=== PATIENT | male | born 1980 | race Caucasian/White ===

== ENCOUNTER 2018-05-25 00:52 | Inpatient (IN) ==
--- NOTE | 2018-05-25 01:17 | Emergency Department Note ---
Disposition Clinical Impression: Cellulitis Qualifiers: Site of cellulitis: extremity Site of cellulitis of extremity: upper extremity Laterality: left Qualified Code(s): L03.114 - Cellulitis of left upper limb Disposition: Admitted As Inpatient Condition: Good Referrals: Jaky Irby CNP [Primary Care Provider] - Forms: ED Satisfaction Letter Skin/Abscess/FB HPI Chief complaint: ED Skin/Abscess/Foreign Body Stated complaint: Left hand abscess, on Bactrim x 2 days Time Seen by Provider: 05/25/18 01:12 Source: patient, EMS Mode of arrival: EMS Limitations: no limitations Nursing Notes Reviewed: Yes Vital Signs Reviewed: Yes HPI Narrative: Patient presents via EMS with complaint of a hand abscess. States it started with a pimple on his third finger that he tried to pop 3 days ago. This made it worse with increased pain, swelling and redness. He was seen at [facility] 2 days ago and was started on Bactrim. He was told the pain and swelling should improve with the antibiotics. He has been taking the bactrim and gela been using cold compresses at home but states the swelling and pain is worsening. He outlined the swelling on his hand this morning and it has now spread past the outline to his wrist and into the additional fingers. He complains of a burning pain that is 9 out of 10 throughout the hand. He denies any fever or chills. 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 States he has been clean for 11 days. Denies any prior history of abscesses, boils or MRSA. He is in rehabilitation at [facility]. He has been taking 400 mg of ibuprofen approximately every 6 hours for pain. His last dose was around 8 PM. He is right handed. Home Medications Medication Instructions Recorded Confirmed No Known Home Drugs 05/12/18 05/25/18 Allergies Allergy/AdvReac Type Severity Reaction Status Date / Time Penicillins [PCN] Allergy Hives Verified 05/25/18 03:54 Constitutional: Denies: fever, chills, weakness, weight change Eyes: Denies: eye pain, eye discharge, vision change ENT ED: Denies: ear pain, throat pain, dental pain, hearing loss, epistaxis, congestion, dysphagia Cardiovascular: Denies: chest pain, palpitations, dyspnea on exertion, edema, syncope Respiratory: Denies: cough, dyspnea, wheezes, hemoptysis, stridor Gastrointestinal: Denies: abdominal pain, nausea, vomiting, diarrhea, constipation, hematemesis, melena, hematochezia Genitourinary: Denies: urgency, dysuria, frequency, hematuria Musculoskeletal: Denies: back pain, neck pain, arthralgia, myalgia Integumentary: Reports: as per HPI. Denies: rash, abrasion, lesions Neurological: Denies: headache, weakness, numbness, paresthesias, confusion, abnormal gait, vertigo Psychiatric: Denies: anxiety, depression, suicidal thoughts, homicidal thoughts, auditory hallucinations, visual hallucinations Endocrine: Denies: fatigue Past Medical History - Past Medical History Medical history: Reports: hepatitis, other Psychiatric history: Reports: depression - Social History Smoking Status: Current every day smoker Smokeless Tobacco Status: No Alcohol use: Reports: none Drug use: Reports: methamphetamine Physical Exam - General Limitations: no limitations General appearance: alert, in no apparent distress - Head Head exam: atraumatic, normocephalic, normal inspection - Eye Eye exam: Present: normal appearance, PERRL, EOMI - Chest Chest inspection: Present: normal inspection, symmetric chest wall rise - Respiratory Respiratory exam: Present: normal lung sounds bilaterally - Cardiovascular Cardiovascular exam: Present: regular rate, normal rhythm, normal heart sounds - Extremities Exam Extremities exam: Present: normal inspection, full ROM. Absent: tenderness, pedal edema - Expanded Upper Extremity Exam Forearm/Wrist exam: Present: normal inspection, full ROM Hand exam: Present: tenderness, swelling, erythema (and warmth extending to wrist on dorsum ). Absent: full ROM (limited by pain and swelling) Neuromotor exam: Normal: wrist extension, thumb opposition, thumb IP flexion, thumb adduction, fingers 2-5 abduction Course Course Narrative: Patient presents to the ED with worsening left hand pain, swelling, redness and warmth despite being on antibiotics for 2 days for an initial abscess on his hand. He has an obvious cellulitis but no focal abscess amenable to drainage at this time. Given that he has failed oral antibiotics as an outpatient he will require IV antibiotics. Will check lab work and give medication for pain. Discussed with patient the need for admission for IV antibiotics and he is in agreement. - Reevaluation(s) Reevaluation #1: CBC shows an elevated white blood cell count of 16.3 with elevated monocytes at 1.7. There has been a delay in the processing of the remainder of the lab work which is still pending at this time. Time: 03:33 Reevaluation #2: BMP is unremarkable. Lactate is normal. I spoke to the hospitalist instructional support technician, Dr. Ho, who has agreed to accept the patient. Time: 04:15 Vital Signs Temperature 97.5 F L 05/25/18 00:54 Pulse Rate 73 05/25/18 00:54 Respiratory Rate 16 05/25/18 00:54 Blood Pressure 158/77 05/25/18 00:54 O2 Sat by Pulse Oximetry 97 05/25/18 00:54 Temperature 97.5 F L 05/25/18 00:54 Pulse Rate 70 05/25/18 01:55 Respiratory Rate 16 05/25/18 01:55 Blood Pressure 146/71 05/25/18 01:55 O2 Sat by Pulse Oximetry 98 05/25/18 01:55 Oxygen Delivery Oxygen Delivery Room Air Skin/Abscess/Foreign Body - Differential Diagnosis Likely: abscess of skin or subcutaneous tissue, cellulitis - Medical Records Medical records reviewed: Yes I reviewed the patient's medical records. - Lab Data Lab results reviewed: Yes I reviewed the patient's lab results. Result diagrams: 05/25/18 02:05 Lab Results 05/25/18 Range/Units 02:05 WBC 14.3 H (4.3-11.1) K/mcL RBC 4.49 (4.19-5.50) M/mcL Hgb 14.0 (12.9-16.9) g/dL Hct 41.1 (37.5-50.1) % MCV 91.5 (83.0-100.0) fL MCH 31.2 (28.0-33.3) pg MCHC 34.1 (31.6-35.5) g/dL RDW 15.3 H (11.5-14.5) % Plt Count 378 (140-400) K/mcL MPV 10.4 (9.4-12.4) fL Immature Gran % 1.8 (0-4) % Seg Neutrophils % 59.8 % Lymphocytes % 24.6 % Monocytes % 11.6 % Eosinophils % 1.1 % Basophils % 1.1 % Neutrophils # 8.6 (1.6-8.9) K/mcL Lymphocytes # 3.5 (0.6-4.6) K/mcL Monocytes # 1.7 H (0.0-1.3) K/mcL Eosinophils # 0.2 (0.0-0.6) K/mcL Basophils # 0.2 (0.0-0.2) K/mcL
[2018-05-25] MEDS ORDERED: Clindamycin 600 MG/50 ML 600 MG/50 ML IV.SOLN IVPB ONE (01:36)
[2018-05-25] MEDS ORDERED: Ketorolac 30 MG/ML VIAL IVP ONE (01:37)
[2018-05-25 02:14] LABS: Basophils # 0.2 K/mcL (0.0-0.2); Basophils % 1.1 %; Eosinophils # 0.2 K/mcL (0.0-0.6); Eosinophils % 1.1 %; Hematocrit 41.1 % (37.5-50.1); Immature Granulocytes % 1.8 % (0-4); Lymphocytes # 3.5 K/mcL (0.6-4.6); Lymphocytes % 24.6 %; Mean Corpuscular HGB Conc 34.1 g/dL (31.6-35.5); Mean Corpuscular Hemoglobin 31.2 pg (28.0-33.3); Mean Corpuscular Volume 91.5 fL (83.0-100.0); Mean Platelet Volume 10.4 fL (9.4-12.4); Monocytes # 1.7 K/mcL (0.0-1.3); Monocytes % 11.6 %; Platelet Count 378 K/mcL (140-400); Red Blood Count 4.49 M/mcL (4.19-5.50); Red Cell Distribution Width 15.3 % (11.5-14.5); Segmented Neutrophils % 59.8 %
[2018-05-25 02:18] LABS: Neutrophils # 8.6 K/mcL (1.6-8.9)
[2018-05-25 03:35] LABS: BUN/Creatinine Ratio 24 (6-26); Blood Urea Nitrogen 17 mg/dL (6-20); Calcium 9.6 mg/dL (8.6-10.3); Carbon Dioxide 25 mEq/L (23-29); Chloride 105 mEq/L (98-107); Glucose 118 mg/dL (70-105); Osmolality,Calculated 291 (280-300); Potassium 4.1 mEq/L (3.5-5.1); Sodium 139 mEq/L (136-145); eGFR For Non-African Americans > 60 (> 60)
--- NOTE | 2018-05-25 12:24 | Internal Med History&Physical ---
Date of Encounter: 05/25/18 Time of Encounter: 12:00 Assessment and Plan (1) Cellulitis Current visit: Yes Status: Acute He was started on IV clindamycin in emergency room. This will be continued with lactobacillus. Qualifiers: Site of cellulitis: extremity Site of cellulitis of extremity: upper extremity Laterality: left Qualified Code(s): L03.114 - Cellulitis of left upper limb (2) Hepatitis C Current visit: Yes Status: Chronic LFTs will be checked in a.m. Qualifiers: Viral hepatitis chronicity: chronic Hepatic coma status: without hepatic coma Qualified Code(s): B18.2 - Chronic viral hepatitis C Internal Medicine - H&P: HPI Chief complaint: Left hand infection Admitted From: Emergency Dept Plans for Post Hospital Care: Home History of present illness: Mr. Ortiz is a 37 year old male who came to emergency room stating he had developed a left hand infection approximately 3 days ago. He saw his PCP who prescribed Bactrim DS twice a day for the cellulitis. He did not feel he was improving so came to emergency room. He was found to have leukocytosis and significant erythema and pain in the left wrist and left dorsum of the hand. He was admitted to Medr floor for ongoing care needs. Past Med Surg Social Fam HX - Past Medical History Medical history: hepatitis, other Additional medical history: Hep C Psychiatric history: depression - Past Surgical History Additional surgical history: carpal tunnel surgery - Social History Smoking Status: Current every day smoker Packs per day: 1 Smokeless Tobacco Status: No Alcohol use: none Drug use: methamphetamine Internal Medicine - H&P: Meds No Known Home Drugs 05/12/18 [History] Allergy/AdvReac Type Severity Reaction Status Date / Time Penicillins [PCN] Allergy Hives Verified 05/25/18 03:54 All Systems PM: A 10-system review of systems was performed and is negative for pertinent findings except as documented above in the HPI. Review of systems: Gen.: He states his weight has been stable the past few months Cardiovascular: He denies hypertension VA heart failure angina DVT or pulmonary embolus Respiratory: He smoked since age 13 up to one pack per day. He denies chronic lung disease and does not use home oxygen GI: He was diagnosed with hepatitis C approximately 2016. He denies receiving treatment for hepatitis C. He was hospitalized at [facility] a few weeks ago with acute liver failure secondary to methamphetamine IV use. Denies other disorders of liver gallbladder or exocrine pancreas. : He denies hematuria dysuria or kidney stones Neurologic: He denies large distribution strokes or seizures. Endocrine: He denies diabetes thyroid disease or hyperlipidemia Hematology/oncology: He denies blood disorders cancers or anemia Psychiatric: He denies anxiety depression or other mental health issues [place] skeletal: He reports bilateral wrist fractures at age 10. He had bilateral carpal tunnel surgery done approximately 2013. He claims he has DJD but denies other bone joint or muscle disorders. - Constitutional Vitals: Temp Pulse Resp BP Pulse Ox 96.7 F L 68 18 120/74 96 05/25/18 10:25 05/25/18 10:25 05/25/18 10:25 05/25/18 10:25 05/25/18 10:25 Exam: Gen.: He is a well-developed well-nourished male lying in bed who appears in mild discomfort and complains of left wrist/hand pain HEENT: Head is atraumatic and normocephalic. Eyes: EOMI. There is no scleral icterus. Mouth: Mucosa is moist. Neck: Supple and nontender. There is no thyromegaly or adenopathy noted. Heart: Regular without murmurs gallops or ectopics Lungs: No wheezes or crackles are heard. Abdomen: Soft and nontender. No masses or guarding are noted. Extremities: He has no pitting edema of his legs. He has no significant DJD changes of his hands. The dorsum of the left hand shows erythema and increased warmth compared to the right. There is significant erythema surrounding a papular area on the dorsum of the third finger proximal phalanx. No lymphangitic streaking is noted. Neurologic: Mental status: He is talkative and a good historian. Cranial nerves: Smile is symmetric. Forehead wrinkles bilaterally. Tongue protrudes midline. EOMI. Motor: There is no pronator drift. Cerebellar: Finger to nose is intact bilaterally. Skin: Warm and dry Internal Med - H&P Results - Labs CBC & Chem 7: 05/25/18 02:05 05/25/18 02:05 Labs: Short CBC 05/25/18 Range/Units 02:05 WBC 14.3 H (4.3-11.1) K/mcL Hgb 14.0 (12.9-16.9) g/dL Hct 41.1 (37.5-50.1) % Plt Count 378 (140-400) K/mcL Neutrophils # 8.6 (1.6-8.9) K/mcL BMP 05/25/18 02:05 Sodium 139 Potassium 4.1 Chloride 105 Carbon Dioxide 25 BUN 17 Creatinine 0.71 Glucose 118 H Calcium 9.6
[2018-05-25] MEDS: Ibuprofen 600 MG TABLET PO PRN ×2 (14:44→21:04)
[2018-05-25] MEDS: Clindamycin 600 MG/50 ML 600 MG/50 ML IV.SOLN IVPB SCH ×2 (14:44→21:03)
[2018-05-25] MEDS ORDERED: Lactobacillus 1 EACH CAP.SPRINK PO SCH (21:00)
[2018-05-26 05:28] LABS: Basophils # 0.1 K/mcL (0.0-0.2); Basophils % 1.2 %; Eosinophils # 0.2 K/mcL (0.0-0.6); Eosinophils % 2.4 %; Hematocrit 41.7 % (37.5-50.1); Hemoglobin 14.1 g/dL (12.9-16.9); Immature Granulocytes % 2.2 % (0-4); Lymphocytes # 3.2 K/mcL (0.6-4.6); Lymphocytes % 32.1 %; Mean Corpuscular HGB Conc 33.8 g/dL (31.6-35.5); Mean Corpuscular Hemoglobin 31.2 pg (28.0-33.3); Mean Corpuscular Volume 92.3 fL (83.0-100.0); Mean Platelet Volume 10.7 fL (9.4-12.4); Monocytes # 1.1 K/mcL (0.0-1.3); Monocytes % 11.4 %; Neutrophils # 5.1 K/mcL (1.6-8.9); Platelet Count 337 K/mcL (140-400); Red Blood Count 4.52 M/mcL (4.19-5.50); Red Cell Distribution Width 15.4 % (11.5-14.5); Segmented Neutrophils % 50.7 %
[2018-05-26] MEDS: Clindamycin 600 MG/50 ML 600 MG/50 ML IV.SOLN IVPB SCH (05:40)
[2018-05-26] MEDS: Ibuprofen 600 MG TABLET PO PRN (05:44)
[2018-05-26 06:05] LABS: Alanine Aminotransferase 76 Units/L (7-52); Albumin 3.6 g/dL (3.5-5.7); Alkaline Phosphatase 243 Units/L (34-104); Aspartate Amino Transferase 32 Units/L (13-39); BUN/Creatinine Ratio 27 (6-26); Bilirubin,Total 1.1 mg/dL (0.3-1.0); Blood Urea Nitrogen 17 mg/dL (6-20); Calcium 9.1 mg/dL (8.6-10.3); Carbon Dioxide 24 mEq/L (23-29); Chloride 104 mEq/L (98-107); Globulin 3.6 g/dL (2.4-3.5); Glucose 134 mg/dL (70-105); Osmolality,Calculated 282 (280-300); Potassium 3.7 mEq/L (3.5-5.1); Sodium 134 mEq/L (136-145); Total Protein 7.2 g/dL (6.4-8.9); eGFR For Non-African Americans > 60 (> 60)
[2018-05-26 07:39] VITALS: BP 101/63
--- NOTE | 2018-05-26 08:19 | Discharge Summary ---
Orders not resulted at time of discharge: Pending orders 05/25/18 02:05 Culture,Blood [BC] Stat Date of Encounter: 05/26/18 Time of Encounter: 08:10 - Discharge Diagnosis (1) Cellulitis Priority: Primary Status: Acute Qualifiers: Site of cellulitis: extremity Site of cellulitis of extremity: upper extremity Laterality: left Qualified Code(s): L03.114 - Cellulitis of left upper limb (2) Hepatitis C Priority: Secondary Status: Chronic Qualifiers: Viral hepatitis chronicity: chronic Hepatic coma status: without hepatic coma Qualified Code(s): B18.2 - Chronic viral hepatitis C Hospital course: Mr. Ortiz is a 37 year old male who came to emergency room stating he had developed a left hand infection approximately 3 days ago. He saw his PCP who prescribed Bactrim DS twice a day for the cellulitis. He did not feel he was improving so came to emergency room. He was found to have leukocytosis and significant erythema and pain in the left wrist and left dorsum of the hand. He was admitted [facility] for ongoing care needs. Initial orders were written by the emergency room physician. I saw him on May 25 and performed a history and physical. He was started on IV clindamycin with lactobacillus. He had significant improvement by the following day with decrease in the size and intensity of erythema. WBC normalized to 10.0 with no left shift on differential present. I felt he was stable for discharge home. He will continue with antibiotic and probiotic for 5 additional days at discharge. LFTs returned minimally elevated with ALT 76 and alkaline phosphatase 243. I encouraged him to discuss treatment for hep C with his PCP. I encouraged him to become a nonsmoker. He will follow with his PCP Jaky Irby CNP within 1 week. - Time Spent with Patient Total time spent providing and/or coordinating discharge services: - Discharge Medications Prescriptions: Clindamycin HCl 300 mg PO Q8H #15 capsule Lactobacillus [Culturelle] 1 each PO BID #10 [email or web address] Home Medications: Clindamycin HCl 300 mg PO Q8H #15 capsule 05/26/18 [Rx] Lactobacillus [Culturelle] 1 each PO BID #10 cap.[email or web address] 05/26/18 [Rx] Allergies/Adverse Reactions: Allergy/AdvReac Type Severity Reaction Status Date / Time Penicillins [PCN] Allergy Hives Verified 05/25/18 03:54 Date of admission: 05/25/18 14:33 Primary care physician: Jaky Irby - Constitutional Vitals: Temp Pulse Resp BP Pulse Ox 97.7 F 67 15 101/63 98 05/26/18 07:35 05/26/18 07:35 05/26/18 07:35 05/26/18 07:35 05/26/18 07:35 - Patient Status Disposition: Home, Self-Care Condition: Good - Discharge Instructions Follow Up With: Jaky Irby, FOOT GATHERER [Primary Care Provider] - 1 week - Diet and Activity Activity: resume usual activities as tolerated Diet: advance to your usual diet
== END 2018-05-26 09:12 | disposition home or self-care (01) | DRG 383 ==
LOC: INPPIK 00:52 → EMEROOPIK 00:52 → INPPIK 04:30
PROVIDERS: ADMIT Internal Medicine; ATTEND Internal Medicine